=== PATIENT | male | born 1980 | race Caucasian/White ===

== ENCOUNTER 2018-08-10 01:00 | Inpatient (IN) | payer MEDICAID ==
[2018-08-10] VITALS (8 sets, daily range): BP systolic 128–137; BP diastolic 76–84; PULSE 65–105; RESP 18–20; Ht 188 cm; Wt 84.0 kg
[~2018-08-10] VITALS: Ht 188 cm; Wt 84.0 kg
--- NOTE | 2018-08-10 01:19 | ERD ---
ER Documentation Chief Complaint Chief Complaint fever HPI The patient is a 38-year-old male, presenting to the ER because he has fever, sore throat, dysuria, cough for the last 3-4 days after he using amphetamine. He denies auditory/visual hallucination, homicidal/suicidal ideation. He denies headache, neck pain, chest pain, dyspnea, abdominal pain. He smokes and does illicit drug, denies drinking Past medical history: None Past surgical history: Right brachial plexus transplant, right eye ROS All systems reviewed and are negative except as per history of present illness. Allergies Allergies: Coded Allergies: No Known Allergy (Unverified , 08/10/18) Physical Exam Vitals Vital Signs Date Temp Pulse Resp B/P (MAP) Pulse Ox O2 O2 Flow FiO2 Time Delivery Rate 08/10/18 100.7 109 30 127/71 100 Room Air 04:07 (89) 08/10/18 102.3 107 24 139/90 99 01:36 (106) Physical Exam Const: No acute distress. Head: Atraumatic. Eyes: Normal Conjunctiva. ENT: Normal External Ears, Nose and Mouth. Bilateral tympanic membrane and oropharynx are within normal limit Neck: Full range of motion. No meningismus. Resp: Clear to auscultation bilaterally. Cardio: Regular rate and rhythm. Abd: Soft, non distended, normal bowel sounds, non tender. Skin: No petechiae or rashes. Back: No midline or flank tenderness. Ext: No cyanosis, or edema. Neur: Awake and alert. No focal deficit Psych: Normal Mood and Affect. Result Diagram: 08/10/18 01408/10/18146 Results 24 hrs Laboratory Tests Test 08/10/18 01:47 08/10/18 01:51 08/10/18 02:30 08/10/18 03:42 White Blood Count 3.3 10^3/ul Red Blood Count 5.24 10^6/ul Hemoglobin 14.9 g/dl Hematocrit 45.2 % Mean Corpuscular 86.3 fl Volume Mean Corpuscular 28.4 pg Hemoglobin Mean Corpuscular 33.0 g/dl Hemoglobin Concent Red Cell Distribution 13.7 % Width Platelet Count 190 10^3/UL Mean Platelet Volume 10.8 fl Immature Granulocytes 0.600 % % Neutrophils % 66.0 % Lymphocytes % 22.7 % Monocytes % 10.4 % Eosinophils % 0.0 % Basophils % 0.3 % Nucleated Red Blood 0.0 /100WBC Cells % Immature Granulocytes 0.020 10^3/ul # Neutrophils # 2.2 10^3/ul Lymphocytes # 0.7 10^3/ul Monocytes # 0.3 10^3/ul Eosinophils # 0.0 10^3/ul Basophils # 0.0 10^3/ul Nucleated Red Blood 0.0 10^3/ul Cells # Prothrombin Time 12.3 Sec Prothrombin Time 1.0 Ratio INR International 0.90 Normalized Ratio Activated 34.6 Sec Partial Thromboplast Time Sodium Level 136 mmol/L Potassium Level 3.8 mmol/L Chloride Level 98 mmol/L Carbon Dioxide Level 29 mmol/L Anion Gap 9 Blood Urea Nitrogen 14 mg/dl Creatinine 0.87 mg/dl Est Glomerular > 60 mL/min Filtrat Rate mL/min Glucose Level 100 mg/dl Calcium Level 8.8 mg/dl Total Bilirubin 0.2 mg/dl Direct Bilirubin 0.00 mg/dl Indirect Bilirubin 0.2 mg/dl Aspartate Amino 37 IU/L Transf (AST/SGOT) Alanine 26 IU/L Aminotransferase (ALT /SGPT) Alkaline Phosphatase 56 IU/L Creatine Kinase 209 IU/L Troponin I < 0.012 ng/ml Total Protein 7.6 g/dl Albumin 4.2 g/dl Globulin 3.40 g/dl Albumin/Globulin 1.23 Ratio POC Venous Lactate 2.4 mmol/L 2.2 mmol/L Lactic Acid Level 2.3 mmol/L Test 08/10/18 04:38 Urine Color STRAW Urine Clarity CLEAR Urine pH 6.0 Urine Specific 1.009 [place]hard Urine Ketones NEGATIVE mg/dL Urine Nitrite NEGATIVE mg/dL Urine Bilirubin NEGATIVE mg/dL Urine Urobilinogen NEGATIVE mg/dL Urine Leukocyte NEGATIVE Mone/ul Esterase Urine Hemoglobin NEGATIVE mg/dL Urine Glucose NEGATIVE mg/dL Urine Total Protein NEGATIVE mg/dl Current Medications Medications Dose Sig/Nicho Start Time Status Last (Trade) Ordered Route PRN Stop Time Admin Dose Reason Admin Sodium 1,000 ml @ Q1H ONCE 08/10/18 Cancel Chloride 1,000 mls/hr IV 01:30 08/10/18 02:29 Sodium 1,430 ml BOLUS OVER 2 08/10/18 DC 08/10/18 Chloride HOURS STAT 01:40 08/10/18 02:00 (NS) IV* 03:01 Piperacillin 100 ml @ ONCE ONCE 08/10/18 DC 08/10/18 Sod/ 200 mls/hr IVPB 02:00 08/10/18 02:07 Tazobactam 02:29 Sod Vancomycin 250 ml @ ONCE ONCE 08/10/18 DC 08/10/18 HCl 125 mls/hr IVPB 02:00 08/10/18 02:57 03:59 650 mg ONCE ONCE 08/10/18 DC 08/10/18 Acetaminophen PO 02:00 08/10/18 02:07 (Tylenol 02:01 Tab) Sodium 2,520 ml @ BOLUS X1 08/10/18 DC Chloride 2,520 mls/hr ONCE IV 03:00 08/10/18 03:59 Sodium 1,000 ml @ Q10H IV 08/10/18 Chloride 100 mls/hr 03:34 IV Flush 3 ml PER 08/10/18 (NS 3 ml) PROTOCOL IV 04:00 Lorazepam 1 mg Q4H PRN 08/10/18 (Ativan) PO .ANXIETY 04:00 Ondansetron 4 mg Q6H PRN 08/10/18 HCl (Zofran IV 04:00 Inj) NAUSEA/VOMITI NG 650 mg Q6H PRN 08/10/18 Acetaminophen PO .PAIN 1-3 04:00 (Tylenol OR TEMP Tab) Albuterol/ 3 ml Q2H RESP 08/10/18 Ipratropium THERAPY PRN 04:00 (Duoneb) HHN SHORTNESS OF BREATH Ceftriaxone 50 ml @ Q12H IVPB 08/10/18 Sodium 100 mls/hr 09:00 Azithromycin 250 ml @ DAILY IVPB 08/10/18 250 mls/hr 09:00 Procedures/[place] [id number] Radiology Main Line: [phone] DIAGNOSTIC IMAGING REPORT Patient: DONTAE BERMUDEZ : 1980 Age: 38 Sex: M MR #: [id number] DOS: 08/10/18 0124 Ordering MD: NAVIN CARTER MD Location: E/R Room/Bed: PROCEDURE: XR Chest. CLINICAL INDICATION: Chest pain. TECHNIQUE: AP Portable chest. COMPARISON: No pertinent prior examinations were submitted for comparison. FINDINGS: The cardiomediastinal silhouette is normal. The aorta is normal. No focal consolidation, pleural effusion or pneumothorax is seen. Right glenoid deformity and degenerative changes are visualized. There are multiple clips overlying the right shoulder and neck. IMPRESSION: No radiographic evidence of acute cardiopulmonary disease. [facility] Physician Pantera Date Time Electronically viewed and signed by Physician Pantera on 08/10/2018 02:44 CS/ CC: NAVIN CARTER MD [id number] EKG: Read by emergency physician Rate/Rhythm: Sinus tachycardia 103 beats/min QRS, ST, T-waves: No ST elevation, no T inversion Impression: Abnormal EKG MEDICAL MAKING DECISION: The patient is a 38-year-old male, presenting with acute severe sepsis of unknown source. She was treated with normosaline 30 mm/kg IV, Zosyn IV, vancomycin IV for acute severe sepsis, Motrin and Tylenol for fever with good response. The differential diagnoses considered include but are not limited to amphetamine abuse, endocarditis, osteomyelitis, pneumonia, UTI, pyelonephritis, cellulitis MDM: Patient's infectious symptoms have not stabilized and the patient is at risk of rapid decompensation. The patient will be admitted for careful hydration, antibiotic therapy, and infectious source control. SEVERE SEPSIS CRITERIA: Infectious source: unknown End organ damage indicated by: [Lactate > 2.0 mmol/L SEPSIS MANAGEMENT Time of recognition of severe sepsis: 2am 3 HOUR BUNDLE Blood cultures x 2 before broad-spectrum antibiotics: [Yes] 30 ml/kg NS bolus [Completed] Initial lactate []2.4 Repeat lactate Pending SEPTIC SHOCK ASSESSMENT: [No] lactic acid > 4.0 [No] Persistent hypotension (SBP < 90 or 40 mmHg drop, MAP < 65) despite 30 mL/kg IV fluid bolus CRITICAL CARE Critical care time [35] minutes Emergent fluid management while maintaining close respiratory support. Provi scott of immediate and broad-spectrum antibiotic therapy. Simultaneous assessment for possible sources in order to direct targeted therapy. Consideration for invasive and chemical support to prevent cardiopulmonary collapse. Critical care time is independent of procedures performed. Departure Diagnosis: Primary Impression: Severe sepsis Additional Impression: Leukopenia Condition: Stable Comments I discussed the findings with the patient. I discussed the patient with the hospitalist Dr Silverman at 3 am. who was made aware of the lab, the treatment, the patient condition. The patient is admitted to Tel Disclaimer: Inadvertent spelling and grammatical errors are likely due to EHR/dictation software use and do not reflect on the overall quality of patient care. Also, please note that the electronic time recorded on this note does not necessarily reflect the actual time of the patient encounter. NAVIN CARTER MD Aug 10, 2018 01:19
[2018-08-10] MEDS ORDERED: SOD CHLORIDE 0.9% 1,000 ML IV ONE (01:30)
[2018-08-10] MEDS ORDERED: SODIUM CHLORIDE 0.9% 1L BAG IV* STA (01:40)
[2018-08-10] MEDS ORDERED: VANCOMYCIN 1 GM (PMX) 250 ML IVPB ONE (02:00)
[2018-08-10] MEDS ORDERED: ACETAMINOPHEN 325 MG TAB PO ONE (02:00)
[2018-08-10] MEDS ORDERED: PIPER-TAZO 3.375 GM IV (PMX) 100 ML IVPB ONE (02:00)
[2018-08-10] MEDS ORDERED: SOD CHLORIDE 0.9% IV ONE (03:00)
[2018-08-10] MEDS ORDERED: ALBUTEROL/IPRATROPIUM (NEB) 3 ML AMP HHN PRN (04:00)
[2018-08-10] MEDS ORDERED: ONDANSETRON 4 MG INJ IV PRN (04:00)
[2018-08-10] MEDS ORDERED: NACL 0.9% 3 ML SYG IV SCH (04:00)
[2018-08-10] MEDS: SOD CHLORIDE 0.9% 1,000 ML IV SCH ×3 (05:00→16:57)
[2018-08-10] MEDS ORDERED: IBUPROFEN 600 MG TAB PO ONE (05:30)
--- NOTE | 2018-08-10 07:37 | HP ---
Date/Time of Note Date/Time of Note DATE: 08/10/18 TIME: 07:34 Assessment/Plan VTE Prophylaxis Pharmacological prophylaxis: heparin Lines/Catheters IV Catheter Type (from Nrs): Saline Lock Assessment/Plan Assessment/Plan 1. SIRS: No clear source of infection -This could be from withdrawing from meth -Follow-up urine culture and blood culture results -Check influenza -Monitor for withdrawal symptoms -Trend lactate 2. Abdominal pain, nausea/vomiting and diarrhea: Meth withdrawal versus infectious etiology -will check CT abdomen/pelvis -Stool studies continue diarrhea Result Diagram: 08/10/18 0147 08/10/18146 Results 24hrs Laboratory Tests Test 08/10/18 01:47 08/10/18 01:51 08/10/18 02:30 08/10/18 03:42 White Blood Count 3.3 L Red Blood Count 5.24 Hemoglobin 14.9 Hematocrit 45.2 Mean Corpuscular Volume 86.3 Mean Corpuscular 28.4 L Hemoglobin Mean Corpuscular 33.0 Hemoglobin Concent Red Cell Distribution 13.7 Width Platelet Count 190 Mean Platelet Volume 10.8 H Immature Granulocytes % 0.600 H Neutrophils % 66.0 Lymphocytes % 22.7 Monocytes % 10.4 Eosinophils % 0.0 Basophils % 0.3 Nucleated Red Blood 0.0 Cells % Immature Granulocytes # 0.020 Neutrophils # 2.2 Lymphocytes # 0.7 L Monocytes # 0.3 Eosinophils # 0.0 Basophils # 0.0 Nucleated Red Blood 0.0 Cells # Prothrombin Time 12.3 Prothrombin Time Ratio 1.0 INR International 0.90 Normalized Ratio Activated 34.6 Partial Thromboplast Time Sodium Level 136 Potassium Level 3.8 Chloride Level 98 Carbon Dioxide Level 29 Anion Gap 9 Blood Urea Nitrogen 14 Creatinine 0.87 Est Glomerular Filtrat > 60 Rate mL/min Glucose Level 100 Calcium Level 8.8 Total Bilirubin 0.2 Direct Bilirubin 0.00 Indirect Bilirubin 0.2 Aspartate Amino 37 Transf (AST/SGOT) Alanine 26 Aminotransferase (ALT/SG PT) Alkaline Phosphatase 56 Creatine Kinase 209 H Troponin I < 0.012 Total Protein 7.6 Albumin 4.2 Globulin 3.40 H Albumin/Globulin Ratio 1.23 POC Venous Lactate 2.4 *H 2.2 *H Lactic Acid Level 2.3 *H Test 08/10/18 04:38 Urine Color STRAW Urine Clarity CLEAR Urine pH 6.0 Urine Specific [place] 1.009 Urine Ketones NEGATIVE Urine Nitrite NEGATIVE Urine Bilirubin NEGATIVE Urine Urobilinogen NEGATIVE Urine Leukocyte Esterase NEGATIVE Urine Hemoglobin NEGATIVE Urine Glucose NEGATIVE Urine Total Protein NEGATIVE HPI/ROS Admit Date/Time Admit Date/Time Hx of Present Illness This is a 28-year-old male with a history of methamphetamine abuse who is attempting to quit came to the ER complaining of fever/chills, nausea/vomiting, diarrhea, abdominal pain. Last use of meth was 4 days ago. When he presented to ER, he was febrile with temperature of 1.3, lactic acid 2.4. Chest x-ray and UA negative. PMH/Family/Social Past Medical History Medications Current Medications Sodium Chloride 1,000 ml @ 100 mls/hr Q10H IV Last administered on 08/10/18at 05:00; Admin Dose 100 MLS/HR; Start 08/10/18 at 03:34 IV Flush (NS 3 ml) 3 ml PER PROTOCOL IV ; Start 08/10/18 at 04:00 Lorazepam (Ativan) 1 mg Q4H PRN PO .ANXIETY; Start 08/10/18 at 04:00 Ondansetron HCl (Zofran Inj) 4 mg Q6H PRN IV NAUSEA/VOMITING; Start 08/10/18 at 04:00 Acetaminophen (Tylenol Tab) 650 mg Q6H PRN PO .PAIN 1-3 OR TEMP; Start 08/10/18 at 04:00 Albuterol/ Ipratropium (Duoneb) 3 ml Q2H RESP THERAPY PRN HHN SHORTNESS OF BREATH; Start 08/10/18 at 04:00 Ceftriaxone Sodium 50 ml @ 100 mls/hr Q12H IVPB ; Start 08/10/18 at 09:00 Azithromycin 250 ml @ 250 mls/hr DAILY IVPB ; Start 08/10/18 at 09:00 Coded Allergies: No Known Allergy (Unverified , 08/10/18) Social History Smoking Status: Current some day smoker Exam/Review of Systems Vital Signs Vitals Vital Signs Date Temp Pulse Resp B/P (MAP) Pulse Ox O2 O2 Flow FiO2 Time Delivery Rate 08/10/18 98.8 94 22 124/84 99 Room Air 07:00 (97) Intake and Output 08/09/18 08/09/18 08/10/18 1515:00 23:00 07:00 IntakeIntake Total 1530 ml BalanceBalance 1530 ml Exam Exam Past Medical History: see hpi Past Surgical History Past Surgical Hx: other (see hpi) Family History Significant Family History: no pertinent family hx Social History Alcohol Use: other Smoking Status: Unknown if ever smoked Drug Use: other Medications Exam Eyes: PERRL ENMT: mucosa pink and moist Respiratory: normal air movement Cardiovascular: nl pulses Gastrointestinal: soft Extremities: normal pulses EDUARDO LINARES MD Aug 10, 2018 07:37
[2018-08-10] MEDS ORDERED: AZITHROMYCIN 500MG/NS (PMX) 250 ML IVPB SCH (09:00)
[2018-08-10] MEDS: CEFTRIAXONE 1 GM/50 ML (PMX) 50 ML IVPB SCH ×2 (10:28→21:13)
[2018-08-10] MEDS: AZITHROMYCIN 500MG/NS (PMX) 250 ML IVPB SCH (16:52)
[2018-08-10] MEDS: ACETAMINOPHEN 325 MG TAB PO PRN (19:34)
[2018-08-10] MEDS: LORAZEPAM 0.5 MG TAB PO PRN (21:13)
[2018-08-11] VITALS (9 sets, daily range): BP systolic 133–141; BP diastolic 82–96; PULSE 84–115; RESP 17–19
[2018-08-11] MEDS ORDERED: HYDROCODONE/APAP (5/325) TAB PO ONE (00:30)
[2018-08-11] MEDS: LORAZEPAM 0.5 MG TAB PO PRN ×2 (04:02→09:00)
[2018-08-11] MEDS: CEFTRIAXONE 1 GM/50 ML (PMX) 50 ML IVPB SCH (09:00)
[2018-08-11] MEDS: ACETAMINOPHEN 325 MG TAB PO PRN (09:00)
[2018-08-11] MEDS: SOD CHLORIDE 0.9% 1,000 ML IV SCH ×2 (09:34→15:04)
--- NOTE | 2018-08-11 12:23 | DS ---
Date/Time of Note Date/Time of Note DATE: 08/11/18 TIME: 12:20 Discharge Summary Admission/Discharge Info Admit Date/Time Aug 10, 2018 at 03:04 Discharge Date/Time Patient Condition: Stable Procedures Chest x-ray: No acute process cultures: blood/ urine/and for influenza negative [phone] abdomen pelvis IMPRESSION: 1. Mild right inguinal lymphadenopathy with mild soft tissue edema. Recommend clinical correlation and follow-up. No other evidence of abdominal or pelvic lymphadenopathy. 2. No calcified urinary calculi or obstructive uropathy. 3. No gastrointestinal disease. 4. No evidence of intra-abdominal free air fluid or abscess. 5. Moderate splenomegaly without focal splenic lesion. Hx of Present Illness 38-year-old gentleman admitted with concern of infection. Going undergoing withdrawal. Hospital Course Hospitalist coverage/hospital course Admitted and evaluated for concern of sepsis. Cultures appear unremarkable. Fever improved. Likely viral illness if anything. Stable continue supportive care. May follow-up with primary or urgent care as outpatient. Viral illness Viral illness Substance abuse: Meth Tobacco he offered patch soon Primary Care Provider Care Physician No Primary Time spent on discharge: > 30 minutes Pending Labs Laboratory Tests Test 08/11/18 05:48 White Blood Count 2.0 10^3/ul (4.8-10.8) Red Blood Count 5.15 10^6/ul (4.70-6.10) Hemoglobin 14.5 g/dl (14.0-18.0) Hematocrit 44.6 % (42.0-52.0) Mean Corpuscular Volume 86.6 fl (82.0-101.0) Mean Corpuscular Hemoglobin 28.2 pg (29.0-33.0) Mean Corpuscular Hemoglobin Concent 32.5 g/dl (32.0-37.0) Red Cell Distribution Width 13.9 % (11.5-14.5) Platelet Count 156 10^3/UL (140-415) Mean Platelet Volume 11.2 fl (7.4-10.4) Immature Granulocytes % 0.000 % (0.001-0.429) Neutrophils % 39.5 % (39.0-77.0) Lymphocytes % 43.5 % (15.0-51.0) Monocytes % 16.5 % (0.0-11.0) Eosinophils % 0.0 % (0.0-7.0) Basophils % 0.5 % (0.0-2.0) Nucleated Red Blood Cells % 0.0 /100WBC (0.0-0.0) Immature Granulocytes # 0.000 10^3/ul (0.0-0.031) Neutrophils # 0.8 10^3/ul (1.6-7.5) Lymphocytes # 0.9 10^3/ul (0.8-2.9) Monocytes # 0.3 10^3/ul (0.3-0.9) Eosinophils # 0.0 10^3/ul (0.0-0.5) Basophils # 0.0 10^3/ul (0.0-0.1) Nucleated Red Blood Cells # 0.0 10^3/ul (0.0-0.0) Sodium Level 139 mmol/L (135-144) Potassium Level 4.1 mmol/L (3.5-5.1) Chloride Level 103 mmol/L (97-110) Carbon Dioxide Level 27 mmol/L (21-31) Anion Gap 9 (5-13) Blood Urea Nitrogen 10 mg/dl (7-20) Creatinine 0.71 mg/dl (0.61-1.24) Est Glomerular Filtrat Rate mL/min > 60 mL/min (>60) Glucose Level 78 mg/dl (70-220) Hemoglobin A1c 5.3 % (0-5.9) Calcium Level 8.4 mg/dl (8.4-10.2) Total Bilirubin 0.1 mg/dl (0.2-1.3) Direct Bilirubin 0.00 mg/dl (0.00-0.20) Indirect Bilirubin 0.1 mg/dl (0-1.1) Aspartate Amino Transf (AST/SGOT) 35 IU/L (15-46) Alanine Aminotransferase (ALT/SGPT) 19 IU/L (13-69) Alkaline Phosphatase 50 IU/L (42-121) Total Protein 6.9 g/dl (6.1-8.1) Albumin 3.7 g/dl (3.3-4.9) Globulin 3.20 g/dl (1.3-3.2) Albumin/Globulin Ratio 1.15 Triglycerides Level 60 mg/dl (0-149) Cholesterol Level 107 mg/dl (100-200) LDL Cholesterol, Calculated 68 mg/dl HDL Cholesterol 27 mg/dl (27-67) Cholesterol/HDL Ratio 3.9 RATIO Thyroid Stimulating Hormone (TSH) 6.840 MIU/L (0.465-4.680) JULIAN MESSER MD Aug 11, 2018 12:22
--- NOTE | 2018-08-11 12:27 | PDOCDIS ---
Discharge Instructions CONDITION [id number] Patient Condition: [id number] Stable HOME CARE INSTRUCTIONS: [id number] Diet Instructions: [id number] Regular ACTIVITY: [id number] Activity Restrictions: [id number] Slowly Increase Activity FOLLOW UP/APPOINTMENTS Follow-up Plan appt primary 1 week or urgent care 1-2 weeks JULIAN MESSER MD Aug 11, 2018 12:27
[2018-08-11] MEDS ORDERED: ACET325T33 PO (12:29)
[2018-08-11] MEDS ORDERED: GUAI120S26 PO (12:29)
[2018-08-11] MEDS ORDERED: ACETAMINOPHEN 325 MG TAB PO PRN (12:30)
[2018-08-11] MEDS ORDERED: GUAIFENESIN/DM 5ML CUP PO PRN (12:30)
[2018-08-11] MEDS: AZITHROMYCIN 500MG/NS (PMX) 250 ML IVPB SCH (17:00)
[2018-08-12] MEDS ORDERED: ENOXAPARIN 40 MG/0.4 ML SYG SC SCH (09:00)
== END 2018-08-11 18:59 | disposition home or self-care (01) | DRG 864 ==
LOC: E/R 01:00 → TEL 03:04
PROVIDERS: ADMIT Internal Medicine; ATTEND Internal Medicine
DX: R50.9 Fever, unspecified (principal); F15.93 Other stimulant use, unspecified with withdrawal; B34.9 Viral infection, unspecified; F17.210 Nicotine dependence, cigarettes, uncomplicated
CPT/HCPCS: 36415; 71045; 74176; 80053; 80061; 81003; 82550; 83036; 83605; 84443; 84484; 85025; 85610; 85730; 87040; 87086; 87400; 93005; 96365; 96375; J0456; J0696; J2543; J3370; J7030

== ENCOUNTER 2018-08-13 18:23 | Emergency (ER) | payer MEDICAID ==
[~2018-08-13] VITALS: Ht 188 cm; Wt 84.1 kg
[~2018-08-13 18:23] MED LIST: ACET325T33 PO; GUAI120S26 PO
[2018-08-13 18:46] VITALS: Ht 188 cm; Wt 84.1 kg
[2018-08-13] MEDS ORDERED: SOD CHLORIDE 0.9% 1,000 ML IV STA (19:41)
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
[2018-08-13 22:15] VITALS: BP 115/72; PULSE 74; RESP 15
== END 2018-08-13 22:15 | disposition home or self-care (01) ==
LOC: FTE 18:23
DX: B34.9 Viral infection, unspecified (principal); R07.9 Chest pain, unspecified; R53.1 Weakness; F17.210 Nicotine dependence, cigarettes, uncomplicated
CPT/HCPCS: 36415; 80053; 81003; 83605; 83690; 84484; 85025; 86308; 86703; 93005; J7030; Z7502

== ENCOUNTER 2018-09-06 20:33 | Emergency (ER) | payer MEDICAID ==
[~2018-09-06] VITALS: Wt 89.4 kg
[2018-09-06 21:14] VITALS: BP 146/88; PULSE 99; RESP 18
--- NOTE | 2018-09-07 00:35 | ERD ---
ER Documentation Chief Complaint Chief Complaint AP, NAUSEA X'S 1 DAY HPI This is a 38-year-old male who presents emergency department with multiple complaints including nausea, mild epigastric discomfort, anxiety. Stated that he lastly used meth yesterday. Denies headache, head injury, loss of consciousness, dizziness, neck pain, neck stiffness, throat pain, difficulty swallowing, difficulty breathing lying flat, shoulder pain, chest pain, back pain, abdominal pain, nausea, vomiting, constipation, diarrhea, urinary symptoms, loss of bowel and bladder control, trauma, injury, falls, difficulty walking due to pain, numbness or tingling sensation, calf pain, recent travel, recent major surgery in the last 3 weeks, calf pain, recent long travel, recent exposure to any illness, recent antibiotic use in the last 3 months, fever, chills, seizures. Past medical history: Surgical history: Social: Denies smoking, use of alcoholic beverages, use of illegal drugs. ROS All systems reviewed and are negative except as per history of present illness. Medications Home Meds Active Scripts Hydroxyzine Hcl* (Hydroxyzine Hcl*) 50 Mg Tablet, 50 MG PO Q6H PRN for ANXIETY, #30 TAB Prov:KIERA GRANADO 09/07/18 Kctvnjwhtkg-J-Munfvhbndx Hb* (Guaifenesin* DM Syrup) 120 Ml Syrup, 10 ML PO Q4H PRN for COUGH for 14 Days Prov:JULIAN MESSER MD 08/11/18 Acetaminophen* (Tylenol*) 325 Mg Tablet, 650 MG PO Q6H PRN for MILD PAIN(1-3)OR ELEVATED TEMP for 7 Days, TAB Prov:JULIAN MESSER MD 08/11/18 Allergies Allergies: Coded Allergies: No Known Allergy (Unverified , 08/10/18) PMhx/Soc History of Surgery: Yes (RIGHT ARM ARTERIAL DAMAGE) Anesthesia Reaction: No Hx Neurological Disorder: No Hx Respiratory Disorders: No Hx Cardiac Disorders: No Hx Psychiatric Problems: No Hx Miscellaneous Medical Probl: Yes (DRUG ABUSE) Hx Alcohol Use: Yes Hx Substance Use: Yes Hx Tobacco Use: Yes Physical Exam Vitals Physical Exam Const: No acute distress Head: Atraumatic Eyes: Normal Conjunctiva ENT: Normal External Ears, Nose and Mouth. Neck: Full range of motion. No meningismus. Resp: Clear to auscultation bilaterally. Chest area: No crepitus. No vesicular lesions. Cardio: Regular rate and rhythm, no murmurs Abd: Soft, non tender, non distended. Normal bowel sounds. Negative Nichols sign. Negative Beaumont sign (heel jar test). Negative psoas sign. Negative Rovsing sign. No CVA tenderness. Ambulatory with steady gait without pain to abdomen. Skin: No petechiae or rashes. Skin is not clammy. No skin tenting. No signs of severe dehydration. Back: No midline or flank tenderness Ext: No cyanosis, or edema Neur: Awake and alert. Romberg test negative. No neurological deficits. Psych: Normal Mood and Affect. Denies auditory/visual hallucinations/delusions. Not suicidal. Not homicidal. Has the capacity to decide for himself. Has good support system at home. Results 24 hrs Current Medications Medications Dose Sig/Nicho Start Time Status Last (Trade) Ordered Route PRN Stop Time Admin Dose Reason Admin Aspirin 325 mg ONCE ONCE 09/07/18 DC 09/07/18 (Aspirin) PO 01:00 00:55 09/07/18 01:01 Lorazepam 1 mg ONCE ONCE 09/07/18 DC 09/07/18 (Ativan) PO 01:00 00:55 09/07/18 01:01 Famotidine 40 mg ONCE ONCE 09/07/18 DC 09/07/18 (Pepcid) PO 01:00 00:55 09/07/18 01:01 Ondansetron 4 mg ONCE STAT 09/07/18 DC 09/07/18 HCl (Zofran ODT 00:39 00:53 Odt) 09/07/18 00:43 Procedures/MDM Diagnostic tests: EKG: Normal sinus rhythm with a ventricular rate of 84 bpm. No STEMI. Treatment: Ativan p.o. Aspirin p.o. Pepcid. Zofran. Re-evaluation: Denies chest pain. Denies auditory/visual hallucinations/delusions. Not suicidal. Not homicidal. Has the capacity to decide for himself. Has good support system at home. Stated that he feels much better at this time and that he is ready to go home. Differential diagnosis I have low suspicion for acute myocardial infarction, pneumonia, acute coronary syndrome, slight alleviation, severe dehydration. Final diagnosis: Anxiety. Prescription: Hydroxyzine. Follow-up with PCP in the next 24-48 hours. Come back here in the emergency department for any new symptoms or any worsening symptoms. All questions and concerns were answered. Patient and family members verbalized understanding and agreed with plan of care. Hemodynamically stable on discharge. Departure Diagnosis: Primary Impression: Anxiety Condition: Stable Additional Instructions: Follow-up with PCP in the next 24-48 hours. Come back here in the emergency department for any new symptoms or any worsening symptoms. KIERA GRANADO Sep 07, 2018 00:35
[2018-09-07] MEDS ORDERED: ONDANSETRON (ODT) 4 MG TAB ODT STA (00:39)
[2018-09-07] MEDS ORDERED: FAMOTIDINE 20 MG TAB PO ONE (01:00)
[2018-09-07] MEDS ORDERED: ASPIRIN 325 MG TAB PO ONE (01:00)
[2018-09-07] MEDS ORDERED: LORAZEPAM 1 MG TAB PO ONE (01:00)
[2018-09-07] MEDS ORDERED: HYDR50TA15 PO (01:10)
== END 2018-09-07 01:26 | disposition home or self-care (01) ==
LOC: FTE 20:33
DX: F41.9 Anxiety disorder, unspecified (principal); Z87.891 Personal history of nicotine dependence
CPT/HCPCS: 93005; Z7502; Z7610

== ENCOUNTER 2018-10-30 06:07 | Emergency (ER) | payer MEDICAID ==
[~2018-10-30] VITALS: Ht 188 cm; Wt 87.0 kg
[~2018-10-30 06:07] MED LIST changes: +GUAI120S25 PO; -GUAI120S26 PO; +HYDR50TA15 PO
[2018-10-30 06:09] VITALS: Ht 188 cm; Wt 87.0 kg
[2018-10-30] MEDS ORDERED: LORA-441 PO (07:16)
--- NOTE | 2018-10-30 07:16 | ERD ---
ER Documentation Chief Complaint Chief Complaint BIB RA STATES DOES NOT FEEL "RIGHT", SOMETHING CRAWLING ON SKIN HPI This is a 38-year-old man with history of anxiety complaining of anxiety and generally not feeling right, he feels bugs crawling all over his body on his stomach. He denies suicidal homicidal ideation, denies fevers or chills, no trauma, no chest pain or shortness of breath ROS All systems reviewed and are negative except as per history of present illness. Medications Home Meds Active Scripts Lorazepam* (Ativan*) 0.5 Mg Tablet, 0.5 MG PO Q8H PRN for ANXIETY, #10 TAB Prov:RAZ RODRIGUEZ MD 10/30/18 Hydroxyzine Hcl* (Hydroxyzine Hcl*) 50 Mg Tablet, 50 MG PO Q6H PRN for ANXIETY, #30 TAB Prov:KIERA GRANADO 09/07/18 Hsxhkcgylse-O-Lypkysaica Hb* (Guaifenesin* DM Syrup) 120 Ml Syrup, 10 ML PO Q4H PRN for COUGH for 14 Days Prov:JULIAN MESSER MD 08/11/18 Acetaminophen* (Tylenol*) 325 Mg Tablet, 650 MG PO Q6H PRN for MILD PAIN(1-3)OR ELEVATED TEMP for 7 Days, TAB Prov:JULIAN MESSER MD 08/11/18 Allergies Allergies: Coded Allergies: No Known Allergy (Unverified , 08/10/18) PMhx/Soc History of anxiety, 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 History of Surgery: Yes (RIGHT ARM ARTERIAL DAMAGE,RIGHT KNEE SX) Anesthesia Reaction: No Hx Neurological Disorder: No Hx Respiratory Disorders: No Hx Cardiac Disorders: No Hx Psychiatric Problems: No Hx Miscellaneous Medical Probl: No Hx Alcohol Use: Yes Hx Substance Use: No (denies) Hx Tobacco Use: Yes Smoking Status: Current some day smoker FmHx Family History: No diabetes Physical Exam Vitals Vital Signs Date Temp Pulse Resp B/P (MAP) Pulse Ox O2 O2 Flow FiO2 Time Delivery Rate 10/30/18 78 18 138/75 98 Room Air 08:34 (96) 10/30/18 97.6 97 19 147/100 98 06:09 (116) Physical Exam GENERAL: Well-developed, well-nourished, well-hydrated, anxious, afebrile HEENT: Moist mucous membranes, pink conjunctiva, no cervical spine tenderness or step-off deformities, large surgical scar to the right lateral neck NEURO: Alert and oriented 3, cranial nerves II through XII intact bilaterally, pupils equal round reactive to light, right upper extremity paresis with contraction deformity to the right hand consistent with his history of Erb's palsy CARDIAC: Tachycardic and regular, no murmurs rubs or gallops LUNGS: Clear bilaterally no wheezing crackles or stridor SKIN: Warm and dry to touch, no abrasions, contusions, or hematomas, no lacerations, no ecchymosis, no target lesions, and without ulcers EXTREMITIES: No clubbing cyanosis or edema, calves are bilaterally symmetrical, contraction deformity to the right hand PSYCH: Anxious Results 24 hrs Current Medications Medications Dose Sig/Nicho Start Time Status Last (Trade) Ordered Route PRN Stop Time Admin Dose Reason Admin Lorazepam 1 mg ONCE ONCE 10/30/18 DC 10/30/18 (Ativan) PO 07:30 07:13 10/30/18 07:31 Procedures/MDM Patient is anxious and I administered lorazepam 1 mg p.o. x1. Patient's initial tachycardia and hypertension resolved completely. Differential diagnoses considered, included but not limited to acute coronary syndrome, pulmonary embolism, aortic dissection, abdominal aortic aneurysm, sepsis, stroke, meningitis, encephalitis, pneumonia, appendicitis, cholecystitis, bowel obstruction, pyelonephritis, nephrolithiasis, cystitis, as well as metabolic, hematologic, and electrolyte abnormalities. As well as abscess, cellulitis, fractures, and dislocations. Patient feels much better at this time, and vital signs are normal, symptoms have improved. I did give strict instructions to return to the ED if symptoms continue or worsen, patient will otherwise follow-up with primary care physician. Patient understood instructions and agreed to plan. Disclaimer: Inadvertent spelling and grammatical errors are likely due to EHR/dictation software use and do not reflect on the overall quality of patient care. Also, please note that the electronic time recorded on this note does not necessarily reflect the actual time of the patient encounter. Departure Diagnosis: Primary Impression: Anxiety attack Condition: Good RAZ RODRIGUEZ MD October 30, 2018 07:16
[2018-10-30] MEDS ORDERED: LORAZEPAM 1 MG TAB PO ONE (07:30)
[2018-10-30 08:34] VITALS: BP 138/75; PULSE 78; RESP 18
== END 2018-10-30 09:15 | disposition home or self-care (01) ==
LOC: E/R 06:07
DX: F41.9 Anxiety disorder, unspecified (principal); F17.210 Nicotine dependence, cigarettes, uncomplicated; R40.2142 Coma scale, eyes open, spontaneous, at arrival to emergency department; R40.2362 Coma scale, best motor response, obeys commands, at arrival to emergency department; R40.2252 Coma scale, best verbal response, oriented, at arrival to emergency department
CPT/HCPCS: Z7502; Z7610; 99283

== ENCOUNTER 2018-11-03 00:14 | Emergency (ER) | payer MEDICAID ==
[~2018-11-03] VITALS: Ht 182.9 cm; Wt 81.8 kg
[~2018-11-03 00:14] MED LIST changes: +LORA-441 PO
[2018-11-03 00:27] VITALS: Ht 182.9 cm; Wt 81.8 kg
[2018-11-03] MEDS ORDERED: HALOPERIDOL 5 MG INJ IM STA (00:30)
[2018-11-03] MEDS ORDERED: DIPHENHYDRAMINE 50 MG INJ IM ONE (00:30)
[2018-11-03] MEDS ORDERED: LORAZEPAM 2 MG INJ IM ONE (00:30)
[2018-11-03] MEDS ORDERED: HALOPERIDOL 5 MG INJ ONE (00:34)
[2018-11-03] MEDS ORDERED: LORAZEPAM 2 MG INJ ONE (00:35)
--- NOTE | 2018-11-03 03:28 | ERD ---
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 The patient is speaking nonsensically. He reports insects/ants crawling all over him. The patient knows his name, but he is agitated and aggressive and difficult to redirect. History and physical is limited secondary to altered mentation and agitation. ROS All systems reviewed and are negative except as per history of present illness. Medications Home Meds Active Scripts Lorazepam* (Ativan*) 0.5 Mg Tablet, 0.5 MG PO Q8H PRN for ANXIETY, #10 TAB Prov:RAZ RODRIGUEZ MD 10/30/18 Hydroxyzine Hcl* (Hydroxyzine Hcl*) 50 Mg Tablet, 50 MG PO Q6H PRN for ANXIETY, #30 TAB Prov:KIERA GRANADO 09/07/18 Omophftqktc-P-Cymommbvta Hb* (Guaifenesin* DM Syrup) 120 Ml Syrup, 10 ML PO Q4H PRN for COUGH for 14 Days Prov:JULIAN MESSER MD 08/11/18 Acetaminophen* (Tylenol*) 325 Mg Tablet, 650 MG PO Q6H PRN for MILD PAIN(1-3)OR ELEVATED TEMP for 7 Days, TAB Prov:JULIAN MESSER MD 08/11/18 Allergies Allergies: Coded Allergies: No Known Allergy (Unverified , 08/10/18) PMhx/Soc History of Surgery: Yes (RIGHT ARM ARTERIAL DAMAGE,RIGHT KNEE SX) Anesthesia Reaction: No Hx Neurological Disorder: No Hx Respiratory Disorders: No Hx Cardiac Disorders: No Hx Psychiatric Problems: No Hx Miscellaneous Medical Probl: No Hx Alcohol Use: Yes Hx Substance Use: Yes (meth) Hx Tobacco Use: Yes Smoking Status: Current some day smoker FmHx Family History: No diabetes Physical Exam Vitals Vital Signs Date Temp Pulse Resp B/P (MAP) Pulse Ox O2 O2 Flow FiO2 Time Delivery Rate 11/03/18 98.0 106 30 141/110 100 00:27 (120) Physical Exam Const: No acute distress Head: Atraumatic Eyes: Normal Conjunctiva ENT: Normal External Ears, Nose and Mouth. Neck: Full range of motion. No meningismus. Resp: Clear to auscultation bilaterally Cardio: Regular rhythm. Tachycardia. No murmurs Abd: Soft, non tender, non distended. Normal bowel sounds Skin: No petechiae or rashes Back: No midline or flank tenderness Ext: No cyanosis, or edema Neur: Awake and alert Psych: Agitated, aggressive, visual hallucinations. Cannot determine if there are auditory hallucinations. Result Diagram: 11/03/18 0054 11/03/18 0054 Results 24 hrs Laboratory Tests Test 11/03/18 00:50 11/03/18 00:51 11/03/18 00:54 Urine Color STRAW Urine Clarity CLEAR Urine pH 7.0 Urine Specific [place] 1.011 Urine Ketones NEGATIVE mg/dL Urine Nitrite NEGATIVE mg/dL Urine Bilirubin NEGATIVE mg/dL Urine Urobilinogen NEGATIVE mg/dL Urine Leukocyte Esterase NEGATIVE Mone/ul Urine Hemoglobin NEGATIVE mg/dL Urine Glucose NEGATIVE mg/dL Urine Total Protein NEGATIVE mg/dl Urine Opiates Screen Negative Urine Barbiturates Negative Urine Amphetamines Screen POSITIVE Urine Benzodiazepines Screen Negative Urine Cocaine Screen Negative Urine Cannabinoids Negative White Blood Count 10.5 10^3/ul Red Blood Count 4.85 10^6/ul Hemoglobin 13.9 g/dl Hematocrit 41.5 % Mean Corpuscular Volume 85.6 fl Mean Corpuscular Hemoglobin 28.7 pg Mean Corpuscular 33.5 g/dl Hemoglobin Concent Red Cell Distribution Width 13.2 % Platelet Count 360 10^3/UL Mean Platelet Volume 10.2 fl Immature Granulocytes % 0.400 % Neutrophils % 77.4 % Lymphocytes % 12.8 % Monocytes % 8.5 % Eosinophils % 0.6 % Basophils % 0.3 % Nucleated Red Blood Cells % 0.0 /100WBC Immature Granulocytes # 0.040 10^3/ul Neutrophils # 8.2 10^3/ul Lymphocytes # 1.4 10^3/ul Monocytes # 0.9 10^3/ul Eosinophils # 0.1 10^3/ul Basophils # 0.0 10^3/ul Nucleated Red Blood Cells # 0.0 10^3/ul Sodium Level 142 mmol/L Potassium Level 3.8 mmol/L Chloride Level 104 mmol/L Carbon Dioxide Level 27 mmol/L Anion Gap 11 Blood Urea Nitrogen 15 mg/dl Creatinine 1.13 mg/dl Est Glomerular Filtrat > 60 mL/min Rate mL/min Glucose Level 103 mg/dl Calcium Level 10.1 mg/dl Total Bilirubin 0.5 mg/dl Direct Bilirubin 0.00 mg/dl Indirect Bilirubin 0.5 mg/dl Aspartate Amino 37 IU/L Transf (AST/SGOT) Alanine 30 IU/L Aminotransferase (ALT/SGPT) Alkaline Phosphatase 52 IU/L Total Protein 7.9 g/dl Albumin 4.5 g/dl Globulin 3.40 g/dl Albumin/Globulin Ratio 1.32 Salicylates Level < 1.0 mg/dl Acetaminophen Level < 10.0 ug/ml Ethyl Alcohol Level < 10.0 mg/dl Current Medications Medications Dose Sig/Nicho Start Time Status Last (Trade) Ordered Route PRN Stop Time Admin Dose Reason Admin Haloperidol 5 mg ONCE STAT 11/03/18 DC 11/03/18 (Haldol) IM 00:30 00:31 11/03/18 00:33 Lorazepam 2 mg ONCE ONCE 11/03/18 DC 11/03/18 (Ativan) IM 00:30 00:31 11/03/18 00:33 50 mg ONCE ONCE 11/03/18 DC 11/03/18 Diphenhydrami IM 00:30 00:31 ne HCl 11/03/18 00:33 (Benadryl) Procedures/MDM MDM The patient's presentation warrants further investigation. Previous medical records, if available, were reviewed. LABS The patient's laboratory testing was obtained and reviewed. No emergent treatment was required unless described below. CBC: No E/o systemic infection or thrombocytopenia. Mild normocytic anemia, not emergent. Chemistry: No E/o severe acidosis or alkalosis or renal failure or liver disease or diabetic ketoacidosis Urine: No E/o acute infection or hematuria Tox: E/o methamphetamine abuse. No E/o alcohol abuse. No E/o salicylate or acetaminophen use. TREATMENT/DISPOSITION The patient's workup included a medical screening examination, laboratory analysis, and diagnostic imaging such as EKG, chest x-ray or CT brain as indicated. The patient's laboratory analysis, diagnostic imaging do not suggest an acute organic pathology. At this time I believe the patient's presentation is consistent with underlying psychiatric illness and likely exacerbation of this illness and/or psychosis. I have a much lower clinical concern for delirium or acute organic pathology such as toxicologic, metabolic, ischemic, intracranial hemorrhage, infectious process. However, we must rule this out prior to relying a diagnosis of underlying psychiatric illness. The patient is medically cleared for psychiatric evaluation. I kept the patient and/or family informed of laboratory and diagnostic imaging results throughout the emergency room course. The patient did not require any physical restraint while under my care. However, given the patient's agitation and aggressive behavior, he did require chemical restraint with Ativan, Benadryl and Haldol. This should also help his psychosis. Psychiatric consultation: Telemetry medicine psychiatry has been consulted on this case to evaluate the patient for possible acute psychiatric illness that would require inpatient hospitalization. As we had to sedate the patient when he first arrived, the patient has not yet been evaluated by psychiatry. The patient is also currently pending PET team evaluation. The patient will be signed out to the oncoming physician. I do anticipate possible need for inpatient psychiatric admission. That said, the patient will need to be assessed when clinically sober. OBSERVATION NOTE Time: 4 hours Family Hx: No Diabetes Evaluation: Multiple exams showed improving symptoms and no evidence of worsening psychosis Disclaimer: Inadvertent spelling and grammatical errors are likely due to EHR/dictation software use and do not reflect on the overall quality of patient care. Note that the electronic time recorded on this note does not necessarily reflect the actual time of the patient encounter. Departure Diagnosis: Primary Impression: Acute psychosis Additional Impressions: Methamphetamine abuse Formication Aggressive behavior Agitation Normocytic anemia Condition: Fair Patient Instructions: Psychosis, Understanding Methamphetamine Abuse and Addiction CLIFFORD DELANEY MD November 03, 2018 03:28
[2018-11-03 12:15] VITALS: BP 118/81; PULSE 90; RESP 18
== END 2018-11-03 12:18 | disposition home or self-care (01) ==
LOC: E/R 00:14
DX: F15.10 Other stimulant abuse, uncomplicated (principal); R20.2 Paresthesia of skin; D64.9 Anemia, unspecified; F17.210 Nicotine dependence, cigarettes, uncomplicated; F23 Brief psychotic disorder
CPT/HCPCS: 36415; 80053; 80307; 81003; 85025; 96372; J1630; J2060; Z7502

== ENCOUNTER 2018-11-10 13:03 | Emergency (ER) | payer MEDICAID ==
[~2018-11-10] VITALS: Ht 188 cm; Wt 87.2 kg
[2018-11-10 13:07] VITALS: Ht 188 cm; Wt 87.2 kg
[2018-11-10] MEDS ORDERED: SOD CHLORIDE 0.9% 1,000 ML IV STA (13:44)
[2018-11-10] MEDS ORDERED: MAGNESIUM CITRATE 300 ML BTL PO ONE (14:30)
[2018-11-10 16:11] VITALS: BP 131/81; PULSE 99; RESP 20
--- NOTE | 2018-11-16 14:33 | ERD ---
ER Documentation Chief Complaint Chief Complaint GENERALIZED BODY PAIN X 2 WEEKS HPI This is a 38-year-old male that presents to the emergency department stating he is concerned that there is a route in insects that are inside his body. Indicates he feels the insects moving up his legs and that there is a rash in h is abdomen. He complains of a sensation of feeling that the right is moving inside him. He did utilize crystal meth prior to arrival. He denies any suicidal homicidal thoughts or ideations. He denies any emesis. He denies headache. He denies any chest pain. He has no shortness of breath. ROS All systems reviewed and are negative except as per history of present illness. Medications Home Meds Unable to Obtain Active Prescriptions or Reported Meds Allergies Allergies: Coded Allergies: No Known Allergy (Unverified , 11/03/18) PMhx/Soc History of Surgery: Yes (RIGHT ARM ARTERIAL DAMAGE,RIGHT KNEE SX) Anesthesia Reaction: No Hx Neurological Disorder: No Hx Respiratory Disorders: No Hx Cardiac Disorders: No Hx Psychiatric Problems: No Hx Miscellaneous Medical Probl: No Hx Alcohol Use: Yes Hx Substance Use: Yes (meth) Hx Tobacco Use: Yes Smoking Status: Former smoker Physical Exam Physical Exam Constitutional:Well-developed. Well-nourished. HEENT:Normocephalic. Atraumatic.Pupils were 5 mm equal round reactive to light. Dry mucous membranes.No tonsillar exudates. Neck: No nuchal rigidity. No lymphadenopathy. No posterior cervical spine tenderness or step-offs. Respiratory: Not using accessory muscles of respiration.Lungs were clear to auscultation bilaterally. No rhonchi. No rales. No wheezing. Cardiovascular: Regular rate regular rhythm.No murmurs. No rubs were appreciated.S1, S2 normal. Distal pulses are palpable 2+ bilaterally. GI: Abdomen was soft. Nontender. Non Distended. No pulsatile abdominal masses or bruits. No rebound. No guarding. Bowel sounds were present and normal. Muscle skeletal: Full range of motion of both the upper and lower extremities bilaterally.Normal muscle tone.No assymetrical calf tenderness or swelling. Skin: No petechia, no purpura. No lesions on the palms or the soles of the feet. No maculopapular rash. NEURO: Patient was alert, awake, orientated x3.No facial droop. Gait observed and normal with no ataxia PSYCH: Patient spoke very rapidly. Was experiencing tactile hallucinations. No auditory visual hallucinations. No suicidal homicidal thoughts or ideations. Results 24 hrs Laboratory Tests Test 11/10/18 14:06 11/10/18 14:07 White Blood Count 6.1 10^3/ul Red Blood Count 4.55 10^6/ul Hemoglobin 12.8 g/dl Hematocrit 38.8 % Mean Corpuscular Volume 85.3 fl Mean Corpuscular Hemoglobin 28.1 pg Mean Corpuscular Hemoglobin Concent 33.0 g/dl Red Cell Distribution Width 13.2 % Platelet Count 284 10^3/UL Mean Platelet Volume 10.2 fl Immature Granulocytes % 0.300 % Neutrophils % 72.5 % Lymphocytes % 16.7 % Monocytes % 8.7 % Eosinophils % 1.5 % Basophils % 0.3 % Nucleated Red Blood Cells % 0.0 /100WBC Immature Granulocytes # 0.020 10^3/ul Neutrophils # 4.4 10^3/ul Lymphocytes # 1.0 10^3/ul Monocytes # 0.5 10^3/ul Eosinophils # 0.1 10^3/ul Basophils # 0.0 10^3/ul Nucleated Red Blood Cells # 0.0 10^3/ul Sodium Level 138 mmol/L Potassium Level 4.0 mmol/L Chloride Level 104 mmol/L Carbon Dioxide Level 27 mmol/L Anion Gap 7 Blood Urea Nitrogen 17 mg/dl Creatinine 0.94 mg/dl Est Glomerular Filtrat Rate mL/min > 60 mL/min Glucose Level 93 mg/dl Calcium Level 9.8 mg/dl Total Bilirubin 0.5 mg/dl Direct Bilirubin 0.00 mg/dl Indirect Bilirubin 0.5 mg/dl Aspartate Amino Transf (AST/SGOT) 36 IU/L Alanine Aminotransferase (ALT/SGPT) 32 IU/L Alkaline Phosphatase 49 IU/L Total Protein 7.1 g/dl Albumin 4.0 g/dl Globulin 3.10 g/dl Albumin/Globulin Ratio 1.29 Salicylates Level < 1.0 mg/dl Ethyl Alcohol Level < 10.0 mg/dl Urine Color COLORLESS Urine Clarity CLEAR Urine pH 7.0 Urine Specific [place] 1.004 Urine Ketones NEGATIVE mg/dL Urine Nitrite NEGATIVE mg/dL Urine Bilirubin NEGATIVE mg/dL Urine Urobilinogen NEGATIVE mg/dL Urine Leukocyte Esterase NEGATIVE Mone/ul Urine Microscopic RBC 0 /HPF Urine Microscopic WBC 0 /HPF Urine Hemoglobin 1+ mg/dL Urine Glucose NEGATIVE mg/dL Urine Total Protein NEGATIVE mg/dl Urine Opiates Screen Negative Urine Barbiturates Negative Urine Amphetamines Screen POSITIVE Urine Benzodiazepines Screen Negative Urine Cocaine Screen Negative Urine Cannabinoids Negative Current Medications Medications Dose Sig/Nicho Start Time Status Last (Trade) Ordered Route PRN Stop Time Admin Dose Reason Admin Sodium 1,000 ml @ Q1H STAT 11/10/18 DC 11/10/18 Chloride 1,000 mls/hr IV 13:44 11/10/18 14:11 14:43 Magnesium 300 ml ONCE ONCE 11/10/18 DC 11/10/18 Citrate PO 14:30 11/10/18 15:32 (Citroma) 14:31 Procedures/MDM This patient presented to the emergency department with acute psychosis and my differential diagnosis included but was not limited to ruling out life threatening causes of acute psychosis such as Wernickes encephalopathy, hypoxia, hypoglycemia, hypertensive encephalopathy, intracerebral hemorrhage, meningitis, poisoning. After my evaluation and workup on the patient I was able to exclude medical and reversible causes of the patients psychosis. It was my clinical impression the patients symptoms were an exacerbation of his amphetamine abuse. The patient had no severe left leg abnormalities. There is no leukocytosis. The patient was very adamant that there was a foreign body present within his abdomen. I obtained a KUB and no foreign bodies were present. Again I explained to the patient that I felt his symptoms were more likely result of psychosis from amphetamine abuse. The patient did not appear to be a threat to himself or others. The patient was given IV fluids for his mild clinical dehydration. He was also given IV Ativan which did improve his psychosis. The patient was tachycardic initially on arrival. I did obtain an EKG to rule out for arrhythmia. 12 Lead EKG tracing ordered and reviewed by myself showed: Normal sinus rhythm of 106 bpm and no arrhythmia. ND interval normal. QRS duration normal. No ST segment elevation No ST segment depression. No changes consistent with acute ischemia. The patient was discharged home in fair condition. They were instructed to return to the emergency department at any time if there was any worsening of their condition. The patient stated they would follow up with their PCP in the next 24-48 hours to initiate a suitable medication regimen under the care of their PCP as well as to allow their PCP to monitor any drug reactions. The patient was discharged home with prescriptions after they gave informed consent to the new medication. They were also fully informed by myself on the adverse effects and adverse drug interactions in order to provide adequate safeguards to prevent possible adverse reactions to medications. Departure Diagnosis: Primary Impression: Amphetamine abuse Condition: Stable Patient Instructions: Dehydration (6Y-Adult) TY VILLAR MD Nov 16, 2018 14:33
== END 2018-11-10 16:11 | disposition home or self-care (01) ==
LOC: E/R 13:03
DX: F15.10 Other stimulant abuse, uncomplicated (principal); R07.9 Chest pain, unspecified; Z87.891 Personal history of nicotine dependence
CPT/HCPCS: 74018; 80053; 80307; 81001; 85025; 93005; J7030; Z7502; Z7610